=== PATIENT | male | born 1980 | race Caucasian/White ===

== ENCOUNTER 2023-09-17 10:19 | Emergency (ER) | payer OTHER ==
[~2023-09-17] VITALS: Ht 185.4 cm; Wt 130.0 kg
[2023-09-17] MEDS: MORPHINE SULFATE 4 MG/ML INJ (FOR IV/IM USE) IV ONE (10:30)
[2023-09-17] MEDS: FENTANYL CITRATE/PF 50MCG/ML 2ML VIAL IV ONE (10:30)
[2023-09-17] MEDS: ONDANSETRON HCL 4MG/2ML INJ IV ONE (10:30)
[2023-09-17] MEDS: PROPOFOL 200MG/20ML VIAL IV ONE (11:38)
[2023-09-17] MEDS: LIDOCAINE HCL 1% 20ML VIAL (Pyxis) INJ INFIL ONE (11:39)
[2023-09-17 11:57] VITALS: PULSE 70; RESP 19; O2SAT 100
[2023-09-17] MEDS: SODIUM CHLORIDE 0.9% 1,000 ML IV ONE (12:19)
[2023-09-17] MEDS ORDERED: IBUP-2029 MT (12:50)
[2023-09-17 13:23] VITALS: O2SAT 99
[2023-09-17 13:31] VITALS: BP 116/56; PULSE 73; RESP 13; TEMP 97.8
== END 2023-09-17 13:34 | disposition home or self-care (01) ==
LOC: ER 10:19
DX: S82.842A Displaced bimalleolar fracture of left lower leg, initial encounter for closed fracture (principal); S93.05XA Dislocation of left ankle joint, initial encounter; X58.XXXA Exposure to other specified factors, initial encounter; Y93.89 Activity, other specified; Y92.89 Other specified places as the place of occurrence of the external cause; Y99.8 Other external cause status
CPT/HCPCS: 73560; 73610; 27810; 96360; 99152; 99285; J3010; J3490; J2704; J7030; Z7610 ×4